=== PATIENT | male | born 1945 | race Caucasian/White ===

== ENCOUNTER → 2016-10-28 | Outpatient (CLI) | payer OTHER, BC ==
[~2016-10-28] VITALS: Ht 157.5 cm; Wt 68.0 kg
[~2016-10-28] MED LIST: COLACE100 MG PO; LORTAB 5-325 M1 EACH PO; PREDNISONE20 MG PO; ULTRAM50 MG PO
== END | disposition home or self-care (01) ==
LOC: AMB 10:33
PROC: 0DJ08ZZ Inspection of Upper Intestinal Tract, Via Natural or Artificial Opening Endoscopic (ICD-10-PCS; principal; 2016-10-28)
DX: K86.2 Cyst of pancreas (principal); Z85.46 Personal history of malignant neoplasm of prostate
CPT/HCPCS: C1726; J2250; J2405; J3010

== ENCOUNTER → 2016-11-18 | Outpatient (CLI) | payer MEDICARE, BC ==
[~2016-11-18] MED LIST changes: +ALPHAGAN P100 DROP/1; +APPLE CIDER VI500 MG PO; +NEVANAC 0.60 DROP/3 BOTH EYES; +PERCOCET 5/31 TABLET PO; +TRUSOPT5 ML
== END | disposition home or self-care (01) ==
LOC: CDC 14:03
DX: I49.9 Cardiac arrhythmia, unspecified (principal); I45.10 Unspecified right bundle-branch block; L98.9 Disorder of the skin and subcutaneous tissue, unspecified; K40.90 Unilateral inguinal hernia, without obstruction or gangrene, not specified as recurrent
CPT/HCPCS: 93000

== ENCOUNTER 2016-12-01 06:00 | Day surgery (SDC) | payer OTHER, BC ==
[~2016-12-01] VITALS: Ht 157.5 cm; Wt 68.2 kg
[~2016-12-01 06:00] MED LIST changes: -PERCOCET 5/31 TABLET PO
[2016-12-01 06:57] VITALS: BP 140/86
[2016-12-01] MEDS ORDERED: PERCOCET 5/31 TABLET PO (10:07)
[2016-12-01] MEDS ORDERED: COLACE100 MG PO (10:07)
[2016-12-01 10:50] VITALS: BP 114/88
[2016-12-01 11:45] VITALS: BP 112/60
== END 2016-12-01 12:05 | disposition home or self-care (01) ==
LOC: SDC 06:00
DX: K40.90 Unilateral inguinal hernia, without obstruction or gangrene, not specified as recurrent (principal); L72.3 Sebaceous cyst; M06.9 Rheumatoid arthritis, unspecified; Z85.46 Personal history of malignant neoplasm of prostate; Z80.42 Family history of malignant neoplasm of prostate
CPT/HCPCS: 88302; 88304; J0330; J0690; J1170; J1885; J2250; J2405; J3010; S0020

== ENCOUNTER → 2018-05-02 | Outpatient (CLI) | payer MEDICARE, BC ==
[~2018-05-02] MED LIST changes: +ESBRIET267 M1 PO; +PERCOCET 5/31 TABLET PO
== END | disposition home or self-care (01) ==
LOC: CDC 11:53
DX: Z01.810 Encounter for preprocedural cardiovascular examination (principal); K40.90 Unilateral inguinal hernia, without obstruction or gangrene, not specified as recurrent; I49.3 Ventricular premature depolarization; I45.10 Unspecified right bundle-branch block; R94.31 Abnormal electrocardiogram [ECG] [EKG]
CPT/HCPCS: 93000

== ENCOUNTER 2018-05-09 11:35 | Day surgery (SDC) | payer OTHER, BC ==
[~2018-05-09] VITALS: Ht 157.5 cm; Wt 68.0 kg
[2018-05-09 12:47] VITALS: BP 137/89
[2018-05-09] MEDS ORDERED: COLACE100 MG PO (16:23)
[2018-05-09] MEDS ORDERED: PERCOCET 5/31 TABLET PO (16:23)
[2018-05-09 17:47] VITALS: BP 177/84
[2018-05-09 18:50] VITALS: BP 176/84
== END 2018-05-09 18:51 | disposition home or self-care (01) ==
LOC: SDC
PROC: 0YQ60ZZ Repair Left Inguinal Region, Open Approach (ICD-10-PCS; principal; 2018-05-09)
DX: K40.91 Unilateral inguinal hernia, without obstruction or gangrene, recurrent (principal); I45.10 Unspecified right bundle-branch block; Z85.46 Personal history of malignant neoplasm of prostate; M06.9 Rheumatoid arthritis, unspecified
CPT/HCPCS: C1781; J0690; J1100; J1170; J2405; J3010

== ENCOUNTER 2018-05-12 09:19 | Emergency (ER) | payer OTHER, BC ==
[~2018-05-12] VITALS: Ht 157.5 cm; Wt 70.0 kg
[2018-05-12 14:34] VITALS: BP 126/83
== END 2018-05-12 14:54 | disposition home or self-care (01) ==
LOC: EME 09:19
DX: L76.32 Postprocedural hematoma of skin and subcutaneous tissue following other procedure (principal); S30.1XXA Contusion of abdominal wall, initial encounter; X58.XXXA Exposure to other specified factors, initial encounter; R05 Cough; Z85.46 Personal history of malignant neoplasm of prostate; Z87.442 Personal history of urinary calculi
CPT/HCPCS: 76705; 99281; 99283